=== PATIENT | male | born 1945 | race African-American/Black ===

== ENCOUNTER 2016-10-25 10:51 | Emergency (ER) | payer OTHER ==
[~2016-10-25] VITALS: Ht 180.3 cm; Wt 113.4 kg
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
--- NOTE | 2016-10-25 12:44 | CT SCAN REPORT ---
EXAMINATION: CT HEAD WITHOUT CONTRAST CLINICAL INFORMATION: Headache. Vision changes. Vomiting. Elevated blood pressure. Presumptive diagnosis of aneurysm versus subarachnoid hemorrhage. COMPARISON: None. TECHNIQUE: Contiguous axial imaging was performed from the skull base to vertex without intravenous administration of contrast. DLP: 529.16 mGy-cm. FINDINGS: There is no evidence of acute intracranial hemorrhage or territorial infarction. No abnormal mass effect or midline shift is seen. [place] to white matter differentiation is well preserved. No extra-axial fluid collections are identified. The ventricles are normal in size. Mild low-attenuation is seen in the external capsules and periventricular deep white matter bilaterally, consistent with ischemic small vessel disease. The osseous structures and soft tissues are normal. The mastoid air cells and visualized portions of the paranasal sinuses are well aerated. IMPRESSION: 1. No evidence of subarachnoid hemorrhage or other acute process. 2. Mild changes related to ischemic small vessel disease.
[2016-10-25 13:02] VITALS: BP 146/91
[2016-10-25] MEDS ORDERED: HYDRALAZINE HC100 M1 PO ×3 (13:07→13:29)
--- NOTE | 2016-10-25 13:12 | RADIOLOGY REPORT ---
EXAMINATION: XR PORTABLE CHEST CLINICAL INFORMATION: Elevated BPS. Presumptive diagnosis of CHF. COMPARISON: None. TECHNIQUE: AP semierect portable view of the chest was obtained. FINDINGS: The cardiomediastinal silhouette is within normal limits in size. Tortuosity and mild ectasia of the aorta is seen. Lungs bilaterally are symmetrically expanded and clear. No focal consolidation, pulmonary edema, effusion or pneumothorax is seen. Bony structures are unremarkable. IMPRESSION: Unremarkable examination. No evidence of congestive heart failure.
== END 2016-10-25 14:07 ==
LOC: ERH 10:51
DX: N28.9 Disorder of kidney and ureter, unspecified (principal); I10 Essential (primary) hypertension; I67.1 Cerebral aneurysm, nonruptured; I60.9 Nontraumatic subarachnoid hemorrhage, unspecified
CPT/HCPCS: 82436; 93005; 93010; 96372; 96374; J0360

== ENCOUNTER 2018-01-25 15:22 | Emergency (ER) | payer OTHER, MEDICARE ==
[~2018-01-25] VITALS: Ht 180.3 cm; Wt 79.4 kg
[~2018-01-25 15:22] MED LIST: HYDRALAZINE HC100 M1 PO
[2018-01-25 15:59] VITALS: BP 128/74
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
--- NOTE | 2018-01-25 17:39 | RADIOLOGY REPORT ---
4 views of the lumbar spine CLINICAL INFORMATION: Trauma with fall/pain COMPARISON: None TECHNIQUE: 4 views of the lumbosacral spine were obtained. FINDINGS: There are 5 nonrib-bearing lumbar-type vertebral bodies. Laminectomy changes within the lower lumbar spine. There is grade 1 retrolisthesis of L2 on L3 and L3 on L4. Vertebral body heights are maintained. No definite acute fractures are identified. There are multilevel endplate osteophytes. There is moderate to severe disc volume loss at the L2-L3, L3-L4, and L4-L5 levels. Advanced multilevel hypertrophic facet arthropathy. IMPRESSION: No acute findings. Moderate to severe lumbar spondylosis.
== END 2018-01-25 18:02 ==
LOC: ERH 15:22
DX: S39.012A Strain of muscle, fascia and tendon of lower back, initial encounter (principal); W00.0XXA Fall on same level due to ice and snow, initial encounter; Y92.9 Unspecified place or not applicable; Y93.9 Activity, unspecified
CPT/HCPCS: 72110